=== PATIENT | male | born 1935 | race Caucasian/White ===

== ENCOUNTER 2017-02-25 06:57 | Day surgery (SDC) | payer MEDICARE, OTHER ==
[~2017-02-25] VITALS: Ht 172.7 cm; Wt 65.9 kg
[2017-02-25 07:20] VITALS: BP 130/69; PULSE 74; RESP 20; TEMP 97.7; O2SAT 95
[2017-02-25] MEDS ORDERED: AMLO2.5T PO (07:35)
[2017-02-25] MEDS ORDERED: PLAV75TA29 PO (07:36)
[2017-02-25] MEDS ORDERED: LOSA50TA PO (07:36)
[2017-02-25] MEDS ORDERED: HYDR-3535 PO (07:36)
[2017-02-25] MEDS ORDERED: TAMS0.4C4 PO (07:36)
[2017-02-25] MEDS ORDERED: TOPR25TA PO (07:36)
[2017-02-25] MEDS ORDERED: METO25TA6 PO (07:36)
[2017-02-25] MEDS ORDERED: FINA5TAB2 PO (07:36)
[2017-02-25] MEDS ORDERED: ATOR40TA16 PO (07:36)
[2017-02-25 08:10] LABS: APTT (PATIENT) 28.2 SEC (24.3-30.1); PROTHROMBIN TIME - PATIENT 10.9 SEC (9.8-11.6)
[2017-02-25] MEDS ORDERED: VANCOMYCIN 1000 MG/NS 250 ML - implanted port/tunneled catheter IV SCH ×2 (08:15)
[2017-02-25] MEDS ORDERED: SODIUM CHLORIDE 0.9% 1000 ML IV SCH (08:15)
[2017-02-25] MEDS ORDERED: ceFAZolin 2 GM PREMIX 50 ML - implanted port/tunneled catheter insertion IV SCH (08:15)
[2017-02-25] MEDS ORDERED: MIDAZOLAM HCL 5 MG/5 ML VIAL ONE (08:58)
[2017-02-25] MEDS ORDERED: fentaNYL CITRATE 250 MCG/5 ML AMP ONE (08:58)
[2017-02-25] MEDS ORDERED: LIDOCAINE 1%/EPINEPHrine 1:100,000 SOLN 20 ML VIAL ONE ×2 (09:24)
--- NOTE | 2017-02-25 10:07 | PD.RAD ---
Post Procedure Progress Note Pre Procedure Diagnosis: (1) Urothelial carcinoma Post Procedure Diagnosis: (1) Urothelial carcinoma Procedure Date: Feb 25, 2017 Supervising Radiologist: Bradley Hernadez Proceduralist/Assist: Dora Beltran, RT(R)(CV), Aubree Schmidt RT(R)() Anesthesia: Local, Conscious Sedation Plan of Activity Patient to Unit: ROPU Patient Condition: Good See PACS Report for procedural detail/treatment Central Venous Access Device Procedure 1 Right Internal Jugular Infusaport Placement single lumen Persian: 8 Bradley Hernadez MD Feb 25, 2017 10:07
[2017-02-25 10:15] VITALS: BP 145/69; PULSE 70; RESP 20; TEMP 98.1; O2SAT 94
[2017-02-25 10:30] VITALS: BP 159/73; PULSE 71; RESP 18; O2SAT 93
--- NOTE | 2017-02-25 10:42 | RADRPT ---
EXAM DATE/TIME: 02/25/2017 09:53 [facility] COMPARISON: No previous studies available for comparison. INDICATIONS : Patient is in need of placement of an Infusaport for chemotherapy treatment of urothelial carcinoma. MEDICAL HISTORY : History of left kidney mass, BPH, HTN, CAD, kidney stones. SURGICAL HISTORY : History of left radical nephrectomy, inguinal hernia repair, lithotripsy, catract removal, CABG, cyst oscopy, ureteral stent, vasectomy. ENCOUNTER: Initial ACUITY: 4-6 months PAIN SCORE: 0/10 FLUORO TIME: 0.3 minutes IMAGE SERIES: 1 SEDATION TIME: 30 minutes ACCESS: Right internal jugular vein SEDATION: 1.) 2 mg midazolam (Versed) IV 2.) 150 mcg fentanyl (Sublimaze) IV Prophylactic antibiotics were administered with appropriate pre-procedure timing. Vancomycin within 2 hours of procedure, Ancef (or alternative) within 1 hour of procedure. DEVICE: 1. 8 Tristanian Bard Power Port PROCEDURE : 1. Continuous pulse oximetry and EKG monitoring. 2. Intravenous conscious sedation. 3. Ultrasound guidance for venous access. 4. Fluoroscopic guided implantable central venous port placement. The patient was placed supine. The neck was prepped in sterile fashion. Full sterile technique was u sed, including cap, mask, sterile gloves and gown, and a large sterile sheet. Hand hygiene and 2% ch lorhexidine Betadine was utilized per protocol for cutaneous antisepsis with appropriate dry time for site. The skin and subcutaneous tissues were infiltrated with local anesthetic solution. Under direct ultrasound guidance, central venous access was accomplished in the targeted vessel. The ultrasound images depicting access guidance were stored and saved to PACS for permanent record. A s ubcutaneous pocket was created using blunt dissection. The port was introduced to the pocket. The c atheter tubing was fed through a subcutaneous tunnel to the venotomy site. The catheter tubing was c ut to a suitable length and then was introduced through a valved Peel-Away sheath and positioned with catheter tubing tip at the cavo-atrial junction level. The pocket incision was closed with subcutic ular Vicryl suture. Steri-Strips were applied. The port was flushed and locked with heparin solutio n per protocol. Sterile dressing was applied to the site. The patient tolerated the procedure well. Conscious sedation was performed with the prescribed dosages and duration as above in the presence of an independent trained radiology nurse to assist in the monitoring of the patient. EKG and oximetry remained stable throughout the procedure. The patient tolerated the procedure well and there were no complications. The patient was sent to post anesthesia recovery in stable condition. CONCLUSION: Uncomplicated ultrasound and fluoroscopic guided implanted central venous port catheter placement as described in detail above. An 8 Tristanian Power port was placed. Bradley Hernadez MD on February 25, 2017 at 10:40 Board Certified Radiologist. This report was verified electronically.
[2017-02-25 11:00] VITALS: BP 152/71; PULSE 61; RESP 18; O2SAT 91
[2017-02-25 11:30] VITALS: BP 160/81; PULSE 65; RESP 18; O2SAT 93
== END 2017-02-25 11:50 | disposition home or self-care (01) ==
LOC: HROP 06:57 → HRIP 07:01 → HROP 11:50
PROVIDERS: ATTEND Internal Medicine Hematology & Oncology
DX: Z45.2 Encounter for adjustment and management of vascular access device (principal); C67.9 Malignant neoplasm of bladder, unspecified; I25.10 Atherosclerotic heart disease of native coronary artery without angina pectoris; N40.0 Benign prostatic hyperplasia without lower urinary tract symptoms; I10 Essential (primary) hypertension; Z87.442 Personal history of urinary calculi
CPT/HCPCS: 36561; 76937; 77001; 85610; 85730; 99152; 99153; C1788; J0690; J1642; J2250; J3010; J3370; J7030; J7050